=== PATIENT | male | born 1980 | race Two or more races ===

== ENCOUNTER → 2017-04-01 | Outpatient (CLI) | payer OTHER | END | disposition home or self-care (01) | LOC: PNCL 08:28 | DX: M50.30 Other cervical disc degeneration, unspecified cervical region (principal); M25.511 Pain in right shoulder; G56.01 Carpal tunnel syndrome, right upper limb | CPT/HCPCS: 99214 ==

== ENCOUNTER → 2017-04-09 | Outpatient (CLI) | payer OTHER | END | disposition home or self-care (01) | LOC: MRI 09:28 | DX: M50.123 Cervical disc disorder at C6-C7 level with radiculopathy (principal); M51.14 Intervertebral disc disorders with radiculopathy, thoracic region | CPT/HCPCS: 72141; 72146; 99152; 99153 ==

== ENCOUNTER → 2017-04-28 | Outpatient (CLI) | payer OTHER | END | disposition home or self-care (01) | LOC: PNCL 08:35 | DX: M54.12 Radiculopathy, cervical region (principal) | CPT/HCPCS: 99212 ==